=== PATIENT | female | born 1995 | race Caucasian/White ===

== ENCOUNTER 2016-09-26 06:45 | Emergency (ER) | payer MEDICAID ==
[~2016-09-26] VITALS: Ht 160 cm; Wt 73.6 kg
[2016-09-26 07:01] VITALS: BP 114/84
== END 2016-09-26 07:29 | disposition home or self-care (01) ==
LOC: EMS 06:46 → EDBD 06:46 → EMS 07:29
DX: F10.129 Alcohol abuse with intoxication, unspecified (principal)
CPT/HCPCS: 99283